=== PATIENT | female | born 1995 | race Asian ===

== ENCOUNTER → 2019-08-31 | Outpatient (CLI) | payer BC, OTHER ==
--- NOTE | 2019-08-31 13:19 | KCIC ---
EXAM: Obstetrics sonogram. HISTORY: Large for dates. TECHNIQUE: Sonographic imaging of a gravid uterus was performed. COMPARISON: None. FINDINGS: There is a single intrauterine fetus in cephalic presentation with a normal heart rate of 158 bpm. There is a three-vessel umbilical cord with normal insertion. There is body motion. The stomach, kidneys, bladder, spine, brain, extremity and heart are unremarkable. The facial profile is difficult to assess due to advanced gestational age and presentation. There is an anterior placenta without evidence of placenta previa. The amniotic fluid index is normal at 10.4 cm. The cervix is partially obscured but appears to measure at least 3.5 cm. The biparietal diameter is 7.77 cm, corresponding with 31 weeks and 1 day. The heads are present is 28.57 cm, corresponding with 31 weeks and 3 days. The abdominal sequential images 26.65 cm, corresponding with 30 weeks and 5 days. The femoral length is 5.79 cm, corresponding with 30 weeks and 2 days. The estimated gestational age patient combined ultrasound measurements is 30 weeks and 6 days. The estimated due date is 11/03/2019. The estimated weight is 1624 g. IMPRESSION: Single intrauterine fetus in cephalic presentation with a normal heart rate and an estimated gestational age based on ultrasound measurements of 30 weeks and 6 days. Electronically signed by: Jodie Davis MD (08/31/2019 1:16 PM) [facility] – [place]
== END | disposition home or self-care (01) ==
LOC: KCIC US 12:10
PROVIDERS: ATTEND Family Medicine
DX: O36.63X0 Maternal care for excessive fetal growth, third trimester, not applicable or unspecified (principal); Z3A.30 30 weeks gestation of pregnancy
CPT/HCPCS: 76805

== ENCOUNTER 2021-07-27 00:44 | Emergency (ER) | payer OTHER ==
[~2021-07-27] VITALS: Ht 157.5 cm; Wt 65.0 kg
[~2021-07-27 00:44] MED LIST: DOCU-148 PO; FERR325T72 PO; IBUP-1027 PO; OXYC1TAB15 PO
[2021-07-27 01:17] LABS: BILIRUBIN,URINE SMALL (NEG); CLARITY,URINE CLOUDY; COLOR,URINE RED; NITRITE,URINE NEGATIVE (NEG); PROTEIN,URINE 100 mg/dL (NEG-TRACE)
[2021-07-27 01:24] LABS: RBC,URINE TNTC /HPF (0-2)
[2021-07-27 01:25] LABS: BACTERIA,URINE 0 /HPF (0-FEW)
--- NOTE | 2021-07-27 01:51 | PHYS DOC ---
Past Medical History Past Medical History: No Pertinent History Additional Past Surgical Histo: C SECTION . Smoking Status: Never Smoker Alcohol Use: None Drug Use: None General Adult EDM: Chief Complaint: VAGINAL PROBLEM HPI: HPI: Patient is a 25-year-old female who presents to the ED with her after an episode of vaginal bleeding earlier this evening at 11 PM. Patient states that she and her were having intercourse when rather suddenly she felt a very heavy sensation and noticed that she was bleeding much like one of her regular menstrual cycles. She say states that she did does not think this was her menstrual cycle as it stopped pretty suddenly and she did not have the same pain as is normal. Patient states that she does not think she is and she is not been trying to be as she is on a every 3-month Depo-Provera shot given to her by her SAFETY INTERN. Patient is a with two section births. Patient denies any other notable obstetric or gynecological history with herself or her and anyone else in her family. She denies any changes in urination, bowel movements, or menstrual cycles. Of note patient also says that since the incident her tailbone hurts when questioned patient does think that she "could not take the force of it". Patient states that the episode of bleeding was heavy at first, and tapered to light and has not bled for last hour. Use of [employer] asl interpreter utilized. Review of Systems: Review of Systems: Constitutional: Denies fever or chills Eyes: Denies redness or eye pain HENT: Denies nasal congestion or sore throat Respiratory: Denies cough or shortness of breath Cardiovascular: Denies chest pain or palpitations GI: Denies abdominal pain, nausea, or vomiting /ADVERTISING EDITOR: Denies dysuria or hematuria; reports vaginal pain and episode of "heavy bleeding" Musculoskeletal: Denies back pain or joint pain Integument: Denies rash or skin lesions Neurologic: Denies headache, focal weakness or sensory changes Complete systems were reviewed and found to be within normal limits, except as documented in this note. Heart Score: C/O Chest Pain: N/A Allergies: Allergies: Allergies Coded Allergies Type Severity Reaction Last Updated Verified No Known Drug Allergies 07/27/21 No Physical Exam: PE: Constitutional: Well developed, well nourished HENT: Normocephalic, atraumatic Eyes: Conjunctiva normal, no discharge Neck: Normal range of motion, no tenderness, supple Lungs & Thorax: No respiratory distress, equal chest rise and fall Abdomen: Soft, no tenderness Skin: Warm, dry, no erythema, no rash Pelvic exam: [facility] RN, posterior vaginal wall tear extending through perineum just above the anal sphincter with significant bleeding noted, patient unable to tolerate speculum examination due to this tear Back: No tenderness, no CVA tenderness Extremities: No tenderness, ROM intact, no edema Neurologic: Alert and oriented X 3, no focal deficits noted Psychologic: Affect normal, judgment normal Current Patient Data: Labs: Laboratory Tests Test 07/27/21 01:06 Urine Collection Type Unknown Urine Color Red Urine Clarity Cloudy Urine pH 5.0 (<5.0-8.0) Urine Specific [place] 1.025 (1.000-1.030) Urine Protein 100 mg/dL (NEG-TRACE) Urine Glucose (UA) Negative mg/dL (NEG) Urine Ketones (Stick) 15 mg/dL (NEG) Urine Blood Large (NEG) Urine Nitrite Negative (NEG) Urine Bilirubin Small (NEG) Urine Urobilinogen Dipstick 1.0 mg/dL (0.2 mg/dL) Urine Leukocyte Esterase Moderate (NEG) Urine RBC Tntc /HPF (0-2) Urine WBC 5-10 /HPF (0-4) Urine Squamous Epithelial Cells Occ /LPF Urine Bacteria 0 /HPF (0-FEW) Urine Mucus Marked /LPF Vital Signs: Vital Signs Date Time Temp Pulse Resp B/P (MAP) Pulse Ox O2 Delivery O2 Flow Rate FiO2 07/27/21 00:58 98.8 101 18 124/80 (95) 100 Room Air 98.8 EKG: EKG: [] Radiology/Procedures: Radiology/Procedures: [] Course & Med Decision Making: Course & Med Decision Making Pertinent Lab studies reviewed. (See chart for details) Patient is a 25-year-old female presents to the ED with sudden onset vaginal bleeding after intercourse. Due to the patient's history and physical exam, it is most suspected that the patient had trauma/laceration, which was confirmed on speculum exam to have been a grade 3 traumatic vaginal/perineal tear due to the sexual intercourse. Wound was cleaned, sutured, and patient is stable otherwise to be discharged home with follow up at her SAFETY INTERN for any further workup or change to her medications. Patient advised to discontinue any further sexual intercourse and or penetration until seen and cleared by SAFETY INTERN. Patient stable for discharge with outpatient follow-up with SAFETY INTERN. Discussed findings and plan with patient and spouse, who acknowledge understanding and agreement. Vero Disclaimer: Vero Disclaimer: This electronic medical record was generated, in whole or in part, using a voice recognition dictation system. Laceration/Wound Repair Laceration/Wound Repair : Wound Location: pelvis (Posterior vagina extending into perineal area excluding anal sphincter) Wound's Depth, Shape: linear Wound Length (cm): 3 Wound Explored: clean Anesthesia: Lidocaine w/ Epi (2%) Volume Anesthetic (ccs): 10 Wound Debrided: minimal Wound Repaired With: sutures (2-0 Chromic Gut) Number of Sutures: 4 (Simple interrupted) Progress Verbal consent obtained. Time out performed. Hand hygiene utilized. Sterile gloves donned. Wound cleaned with ChloraPrep. Anesthesia obtained via a 25- gauge hypodermic needle with (10) mL's of lidocaine 2% with epinephrine. Peritoneal tear wounds well approximated with 2-0 chromic gut simple interrupted sutures x4. Patient tolerated procedure well and without difficulty. Departure Departure Impression: Primary Impression: Tear of vaginal muscle Qualified Codes: S39.013A - Strain of muscle, fascia and tendon of pelvis, initial encounter Disposition: HOME / SELF CARE / HOMELESS Condition: STABLE Referrals: DELPHINE CHAN Jr, MD (PCP) RUBEN MIRANDA MD Patient Instructions: Episiotomy or Perineal Tear, Care After, Sitz Bath, [id number] Additional Instructions: No sexual activity or penetration to vaginal area until cleared by valve pipe irrigator. Do not soak your wound. You may shower. Clean wound daily with soap and water. Wear a peripad. Use sitz bath as instructed. Sutures need to be removed in 5-7 days. Present to your ADVERTISING EDITOR for removal. Scripts Hydrocodone Bit/Acetaminophen (HYDROCODONE-APAP 5-325 ) 1 Tab Tablet 0.5-1 TAB PO PRN Q6HRS PRN for PAIN, #10 TAB 0 Refills Prov: RUBEN CLARK DO 07/27/21 Docusate Sodium (DOK) 100 Mg Capsule 100 MG PO PRN BID PRN for CONSTIPATION, #60 CAP 1 Refill Prov: CLARK,RUBEN R DO 07/27/21 RUBEN CLARK DO Jul 27, 2021 01:51
[2021-07-27 02:00] LABS: U PREG PATIENT NEGATIVE (NEG)
[2021-07-27 02:32] LABS: BASO # 0.1 x10^3/uL (0.0-0.2); BASO % 1 % (0-3); EOS # 0.2 x10^3/uL (0.0-0.7); EOS % 2 % (0-3); HEMATOCRIT 38.5 % (36.0-47.0); HEMOGLOBIN 13.2 g/dL (12.0-15.5); LYMPH # 1.9 x10^3/uL (1.0-4.8); LYMPH % 27 % (24-48); MEAN CORPUSCULAR HEMOGLOBIN 27 pg (25-35); MEAN CORPUSCULAR HGB CONC 34 g/dL (31-37); MEAN CORPUSCULAR VOLUME 80 fL (79-100); MONO # 0.3 x10^3/uL (0.0-1.1); MONO % 4 % (0-9); NEUT # 4.4 x10^3/uL (1.8-7.7); NEUT % 65 % (31-73); PLATELET COUNT 215 x10^3/uL (140-400); RED BLOOD COUNT 4.83 x10^6/uL (3.50-5.40); WHITE BLOOD COUNT 6.8 x10^3/uL (4.0-11.0)
[2021-07-27] MEDS ORDERED: LIDOCAINE 2%/EPI 1:100,000 20 ML VIAL. INJ ONE (03:30)
[2021-07-27] MEDS ORDERED: DOCU-148 PO (04:15)
[2021-07-27] MEDS ORDERED: HYDR-2761 PO (04:15)
[2021-07-27 04:34] VITALS: BP 123/77
[2021-07-27] MEDS ORDERED: HYDROcodone/APAP 5/325MG 1 TAB TABLET PO ONE (05:00)
== END 2021-07-27 04:40 | disposition home or self-care (01) ==
LOC: ER 00:44
DX: S39.013A Strain of muscle, fascia and tendon of pelvis, initial encounter (principal); X58.XXXA Exposure to other specified factors, initial encounter; Y93.89 Activity, other specified; Y92.89 Other specified places as the place of occurrence of the external cause; Y99.8 Other external cause status
CPT/HCPCS: 36415; 57210; 81001; 81025; 85025; 87086; 99285; J3490